=== PATIENT | female | born 1940 | race Hispanic/Latino ===

== ENCOUNTER → 2022-05-07 | Outpatient (CLI) | payer OTHER | END | disposition home or self-care (01) | LOC: RAH 14:21 | PROVIDERS: ATTEND Internal Medicine | DX: R31.0 Gross hematuria (principal); M47.816 Spondylosis without myelopathy or radiculopathy, lumbar region; Z90.49 Acquired absence of other specified parts of digestive tract; M41.86 Other forms of scoliosis, lumbar region; Z90.5 Acquired absence of kidney | CPT/HCPCS: 74176 ==